=== PATIENT | male | born 2000 ===

== ENCOUNTER → 2020-10-28 14:08 | Outpatient (ROUT) | payer OTHER, SELFPAY ==
[2020-10-28 14:37] LABS: COVID19 -Nasal RAPID Negative (Negative)
== END ==
PROVIDERS: Visit Provider Family Medicine
DX: Z20.822 Contact with and (suspected) exposure to COVID-19 (principal)
CPT/HCPCS: 87635

== ENCOUNTER → 2020-11-13 13:47 | Outpatient (ROUT) | payer OTHER, SELFPAY ==
[2020-11-13 15:59] LABS: COVID19 -Nasal RAPID Negative (Negative)
== END ==
PROVIDERS: Visit Provider Family Medicine
DX: Z20.822 Contact with and (suspected) exposure to COVID-19 (principal)
CPT/HCPCS: 87635

== ENCOUNTER → 2023-01-04 15:08 | Outpatient (CLI) | payer OTHER, SELFPAY ==
--- NOTE | 2023-01-04 | DI.MRI.S_ITS ---
PROCEDURE: MR SHOULDER RT WO CON INDICATIONS: Strain of the rotator cuff right shoulder TECHNIQUE: Noncontrast oblique coronal T2 fast spin echo with fat saturation, oblique sagittal T1 spin echo and T2 fast spin echo with fat saturation, axial T1 spin echo and T2 fast spin echo with fat saturation through the shoulder. COMPARISON: None. FINDINGS: Image quality: Excellent. Rotator cuff: Low-grade articular and bursal surface partial thickness tear involving distal supraspinatus at its insertion on the humeral head is seen extending to musculotendinous junction. Distal infraspinatus and subscapularis tendons are intact. No full-thickness rotator cuff tendon rupture. Sagittal images demonstrate no significant rotator cuff muscle atrophy. Bones and bursae: No bone marrow contusions or fractures. No acromioclavicular joint degeneration. The acromion demonstrates conventional anatomy, without an os acromiale. No pathologic subacromial-subdeltoid or subcoracoid bursal fluid is present. Capsule and soft tissues: Fraying of anterior-inferior labrum with subtle signal abnormality is seen at 3 to 5 o'clock position suggestive of anterior-inferior labral tear. The glenohumeral ligaments are grossly intact. The long head of the biceps tendon demonstrates normal location and morphology. The rotator interval appears normal, without fibrosis. The coracohumeral ligament is normal in thickness. IMPRESSION: 1. Low-grade articular and bursal surface partial thickness tear involving distal supraspinatus extending to musculotendinous junction. No full-thickness rotator cuff tendon rupture. No muscle atrophy. 2. No marrow edema. No fracture or dislocation. No significant joint effusion or subacromial subdeltoid bursal fluid. 3. Finding is concerning for anterior-inferior labral tear at 3 to 5 o'clock position. Dictated by: Jay Wellignton M.D. on 01/04/2023 at 16:48 Approved by: Jay Wellington M.D. on 01/04/2023 at 17:22
== END ==
PROVIDERS: PCP Family Medicine; Referring Provider Family Medicine; Visit Provider Family Medicine
DX: S46.011A Strain of muscle(s) and tendon(s) of the rotator cuff of right shoulder, initial encounter (principal); X58.XXXA Exposure to other specified factors, initial encounter
CPT/HCPCS: 73221